=== PATIENT | male | born 2000 | race Hispanic/Latino ===

== ENCOUNTER 2024-05-30 02:25 | Emergency (ER) | payer SELFPAY ==
[~2024-05-30] VITALS: Ht 165.1 cm; Wt 90.7 kg
[2024-05-30 02:27] VITALS: BP 142/90; PULSE 120; RESP 20; TEMP 98
--- NOTE | 2024-05-30 02:32 | NUR ---
PATIENT WALKED OUT OF ER THROUGH ER LOBBY, WALKING IN THE DIRECTION OF THE EXPRESSWAY
--- NOTE | 2024-05-30 02:33 | NUR ---
[facility] [employer] NOTIFIED PATIENT LEFT EMERGENCY DEPARTMENT AND WAS REPORTED TO BE INTOXICATED.
== END 2024-05-30 02:38 | disposition left against medical advice (07) ==
LOC: EDH 02:25
DX: R51.9 Headache, unspecified (principal); Z53.21 Procedure and treatment not carried out due to patient leaving prior to being seen by health care provider